=== PATIENT | female | born 1990 | race Caucasian/White ===

== ENCOUNTER 2016-03-04 05:35 | Inpatient (IN) | payer MEDICAID ==
[~2016-03-04] VITALS: Ht 152.4 cm; Wt 68.9 kg
[2016-03-04 06:14] LABS: BASOPHILS # (AUTO) 0.02 K/uL (0.00-0.20); BASOPHILS % (AUTO) 0.2 % (0.0-2.0); EOSINOPHILS # (AUTO) 0.06 K/uL (0.00-0.70); EOSINOPHILS % (AUTO) 0.71 % (1.0-6.0); HEMATOCRIT 32.3 % (36-46); HEMOGLOBIN 10.8 g/dL (12.0-16.0); LYMPHOCYTES # (AUTO) 1.3 K/uL (1.0-4.8); LYMPHOCYTES % (AUTO) 15.8 % (22.0-44.0); MEAN CORPUSCULAR HGB CONC 33.3 G/dL (31.0-37.0); MEAN CORPUSCULAR VOLUME 78 fL (80-100); MONOCYTES # (AUTO) 0.8 K/uL (0.1-1.0); MONOCYTES % (AUTO) 10.1 % (2.0-9.0); NEUTROPHILS # (AUTO) 6.1 K/uL (1.8-7.7); NEUTROPHILS % (AUTO) 73.1 % (40.0-70.0); PLATELET COUNT (AUTO) 332 K/uL (150-450); RED BLOOD CELL COUNT(AUTO) 4.14 MIL/uL (4.00-5.20); RED CELL DISTRIBUTION WIDTH 15.7 % (11.5-14.5); WHITE BLOOD COUNT (AUTO) 8.4 K/uL (4.5-11.0)
[2016-03-04 06:17] LABS: ANION GAP 4 mmol/L (8-16); CALCIUM, TOTAL 8.3 mg/dL (8.8-10.5); CARBON DIOXIDE 29 mmol/L (22-29); CHLORIDE 104 mmol/L (98-107); CREATININE 0.68 mg/dL (0.60-1.30); GLOMERULAR FILTR. RATE CALC > 60 mL/min (>60); POTASSIUM 3.2 mmol/L (3.5-5.1); SODIUM SERUM 137 mmol/L (136-145); UREA NITROGEN, BLOOD 9 mg/dL (7-18)
[2016-03-04 06:23] LABS: ALANINE AMINOTRANSFERASE 46 U/L (12-78); ALBUMIN 2.7 g/dL (3.4-5.0); ASPARTATE AMINOTRANSFERASE 33 U/L (15-37); BILIRUBIN,TOTAL 0.4 mg/dL (0.1-1.0); TOTAL PROTEIN, SERUM 8.5 g/dL (6.4-8.2)
[2016-03-04] MEDS ORDERED: HALOPERIDOL LACTATE 5 MG/ML VIAL IM ONE ×2 (11:30)
[2016-03-04] MEDS ORDERED: DiphenhydrAMINE HCL 50 MG/ML VIAL IM ONE ×2 (11:30)
[2016-03-04] MEDS ORDERED: LORazepam 2 MG/ML VIAL IM ONE ×2 (11:30)
[2016-03-04] MEDS ORDERED: CEPHALEXIN MONOHYDRATE 500 MG CAPSULE PO ONE (17:30)
[2016-03-05 00:12] VITALS: BP 110/64
[2016-03-05] MEDS ORDERED: INFLUENZA VIRUS VACCINE QVS 2016-17 (3YR+)/PF 60 MCG/0.5 ML SYRINGE IM ONE (00:30)
[2016-03-05] MEDS ORDERED: CloNIDine HCL 0.1 MG TABLET PO PRN (09:00)
[2016-03-05] MEDS ORDERED: POTASSIUM CHLORIDE 20 MEQ ER TABLET PO ONE (09:00)
[2016-03-05] MEDS ORDERED: BACITRACIN 28.4 GM OINTMENT TP PRN (09:00)
[2016-03-05] MEDS ORDERED: MAGNESIUM HYDROXIDE SUSPENSION 30 ML UDCUP PO PRN (09:00)
[2016-03-05] MEDS ORDERED: ACETAMINOPHEN 325 MG TABLET PO PRN (09:00)
[2016-03-05] MEDS ORDERED: LOPERAMIDE HCL 2 MG CAPSULE PO PRN (09:00)
[2016-03-05] MEDS ORDERED: PETROLATUM,WHITE 71 GM JELLY TP PRN (09:00)
[2016-03-05] MEDS ORDERED: IBUPROFEN 600 MG TABLET PO PRN (09:00)
[2016-03-05] MEDS ORDERED: ONDANSETRON HCL 4 MG TABLET PO PRN (09:00)
[2016-03-05] MEDS ORDERED: BENZOCAINE/MENTHOL LOZENGE [8 LOZENGES/PACKET] MM PRN (09:00)
[2016-03-05] MEDS ORDERED: ALBUTEROL SULFATE HFA 90 MCG/PUFF 8 GM INHALER IH PRN (09:00)
[2016-03-05] MEDS: QUEtiapine FUMARATE 200 MG TABLET PO SCH (21:33)
[2016-03-06] MEDS ORDERED: DiphenhydrAMINE HCL 50 MG/ML VIAL IM ONE (15:30)
[2016-03-06] MEDS ORDERED: HALOPERIDOL LACTATE 5 MG/ML VIAL IM ONE (15:30)
[2016-03-06] MEDS ORDERED: LORazepam 2 MG/ML VIAL IM ONE (15:30)
[2016-03-06 16:35] VITALS: BP 100/60
[2016-03-06] MEDS: QUEtiapine FUMARATE 200 MG TABLET PO SCH (21:56)
[2016-03-07] MEDS: LORazepam 2 MG TABLET PO PRN (12:10)
[2016-03-07] MEDS: HALOPERIDOL 5 MG TABLET PO PRN (12:10)
[2016-03-07 16:00] VITALS: BP 108/68
[2016-03-07] MEDS: QUEtiapine FUMARATE 200 MG TABLET PO SCH (22:06)
[2016-03-08 09:03] VITALS: BP 119/75
[2016-03-08 09:26] LABS: CHOL/HDL RATIO 2.3 (3.9-5.7); POTASSIUM 3.9 mmol/L (3.5-5.1); THYROID STIMULATING HORMONE 3.42 uIU/mL (0.36-3.74)
[2016-03-08 17:07] VITALS: BP 111/72
[2016-03-08] MEDS: QUEtiapine FUMARATE 200 MG TABLET PO SCH (21:00)
[2016-03-09 16:30] VITALS: BP 124/69
[2016-03-09] MEDS: QUEtiapine FUMARATE 200 MG TABLET PO SCH (21:00)
[2016-03-10] MEDS: QUEtiapine FUMARATE 200 MG TABLET PO SCH (20:14)
[2016-03-10] MEDS: LORazepam 2 MG TABLET PO PRN (20:15)
[2016-03-11] MEDS: QUEtiapine FUMARATE 200 MG TABLET PO SCH (20:35)
[2016-03-12] MEDS: HALOPERIDOL 5 MG TABLET PO PRN (09:15)
[2016-03-12] MEDS: LORazepam 2 MG TABLET PO PRN (09:15)
[2016-03-12] MEDS: CEPHALEXIN MONOHYDRATE 500 MG CAPSULE PO SCH ×2 (13:30→16:49)
[2016-03-12] MEDS: QUEtiapine FUMARATE 200 MG TABLET PO SCH (20:43)
[2016-03-13] MEDS: QUEtiapine FUMARATE 200 MG TABLET PO SCH ×2 (08:17→21:00)
[2016-03-13] MEDS: CEPHALEXIN MONOHYDRATE 500 MG CAPSULE PO SCH ×3 (08:17→17:00)
[2016-03-13] MEDS ORDERED: LORazepam 2 MG/ML VIAL ONE (15:27)
[2016-03-13] MEDS ORDERED: HALOPERIDOL LACTATE 5 MG/ML VIAL ONE (15:28)
[2016-03-13] MEDS ORDERED: DiphenhydrAMINE HCL 50 MG/ML VIAL ONE (15:28)
[2016-03-13] MEDS ORDERED: LORazepam 2 MG/ML VIAL IM ONE (15:30)
[2016-03-13] MEDS ORDERED: DiphenhydrAMINE HCL 50 MG/ML VIAL IM ONE (15:30)
[2016-03-13] MEDS ORDERED: HALOPERIDOL LACTATE 5 MG/ML VIAL IM ONE (15:30)
[2016-03-14] MEDS: CEPHALEXIN MONOHYDRATE 500 MG CAPSULE PO SCH ×3 (09:58→20:29)
[2016-03-14] MEDS: QUEtiapine FUMARATE 200 MG TABLET PO SCH ×2 (09:58→20:59)
[2016-03-14] MEDS: DIVALPROEX SODIUM 500 MG DR TABLET PO SCH ×2 (09:58→20:59)
[2016-03-14] MEDS ORDERED: HALOPERIDOL LACTATE 5 MG/ML VIAL IM ONE (15:15)
[2016-03-14] MEDS ORDERED: LORazepam 2 MG/ML VIAL IM ONE (15:15)
[2016-03-14] MEDS ORDERED: DiphenhydrAMINE HCL 50 MG/ML VIAL IM ONE (15:15)
[2016-03-14 16:00] VITALS: BP 106/63
[2016-03-15] MEDS: DIVALPROEX SODIUM 500 MG DR TABLET PO SCH ×2 (08:23→21:27)
[2016-03-15] MEDS: QUEtiapine FUMARATE 200 MG TABLET PO SCH ×2 (08:23→21:27)
[2016-03-15] MEDS: CEPHALEXIN MONOHYDRATE 500 MG CAPSULE PO SCH ×3 (08:23→18:06)
[2016-03-15] MEDS: LORazepam 2 MG TABLET PO PRN ×2 (08:57→13:03)
[2016-03-15] MEDS: HALOPERIDOL 5 MG TABLET PO PRN (13:03)
[2016-03-15 13:42] VITALS: BP 117/64
[2016-03-15 16:18] VITALS: BP 118/66
[2016-03-16 08:07] VITALS: BP 102/60
[2016-03-16] MEDS: CEPHALEXIN MONOHYDRATE 500 MG CAPSULE PO SCH ×3 (08:45→16:57)
[2016-03-16] MEDS: DIVALPROEX SODIUM 500 MG DR TABLET PO SCH ×2 (08:45→22:31)
[2016-03-16] MEDS: LORazepam 2 MG TABLET PO PRN (08:46)
[2016-03-16] MEDS: QUEtiapine FUMARATE 200 MG TABLET PO SCH ×2 (08:46→22:31)
[2016-03-16 16:00] VITALS: BP 108/69
[2016-03-16 18:22] LABS: APPEARANCE,URINE CLEAR (CLEAR); GLUCOSE, URINE (UA) NEGATIVE (NEGATIVE); KETONES,URINE NEGATIVE (NEGATIVE); LEUKOCYTE ESTERASE ,URINE SMALL (NEGATIVE); OCCULT BLOOD,URINE NEGATIVE (NEGATIVE); PROTEIN,URINE NEGATIVE (NEGATIVE)
[2016-03-16 18:25] LABS: ADD UA MICROSCOPIC YES
[2016-03-16 18:34] LABS: RBC,URINE None Seen /HPF (0-2)
[2016-03-17 08:01] VITALS: BP 113/64
[2016-03-17] MEDS: CHOLECALCIFEROL (VIT D3) 1,000 UNITS TABLET PO SCH (11:15)
[2016-03-17] MEDS: QUEtiapine FUMARATE 200 MG TABLET PO SCH ×2 (11:15→20:38)
[2016-03-17] MEDS: CEPHALEXIN MONOHYDRATE 500 MG CAPSULE PO SCH ×3 (11:15→16:36)
[2016-03-17] MEDS: DIVALPROEX SODIUM 500 MG DR TABLET PO SCH ×2 (11:16→20:38)
[2016-03-17] MEDS: LORazepam 2 MG TABLET PO PRN (15:20)
[2016-03-17 16:10] VITALS: BP 146/89
[2016-03-18 08:52] VITALS: BP 104/64
[2016-03-18] MEDS: CHOLECALCIFEROL (VIT D3) 1,000 UNITS TABLET PO SCH (09:22)
[2016-03-18] MEDS: QUEtiapine FUMARATE 200 MG TABLET PO SCH ×2 (09:22→21:08)
[2016-03-18] MEDS: CEPHALEXIN MONOHYDRATE 500 MG CAPSULE PO SCH ×3 (09:22→16:19)
[2016-03-18] MEDS: DIVALPROEX SODIUM 500 MG DR TABLET PO SCH ×2 (09:23→21:08)
[2016-03-18] MEDS: LORazepam 2 MG TABLET PO PRN (16:20)
[2016-03-19] MEDS: DIVALPROEX SODIUM 500 MG DR TABLET PO SCH ×2 (09:43→20:39)
[2016-03-19] MEDS: CEPHALEXIN MONOHYDRATE 500 MG CAPSULE PO SCH ×3 (09:43→17:33)
[2016-03-19] MEDS: QUEtiapine FUMARATE 200 MG TABLET PO SCH ×2 (09:43→20:40)
[2016-03-19] MEDS: CHOLECALCIFEROL (VIT D3) 1,000 UNITS TABLET PO SCH (09:43)
[2016-03-19] MEDS: LORazepam 2 MG TABLET PO PRN (22:11)
[2016-03-20] MEDS: HALOPERIDOL 5 MG TABLET PO PRN (00:08)
[2016-03-20] MEDS: ZOLPIDEM TARTRATE 10 MG TABLET PO PRN (00:08)
[2016-03-20] MEDS: CHOLECALCIFEROL (VIT D3) 1,000 UNITS TABLET PO SCH (08:55)
[2016-03-20] MEDS: DIVALPROEX SODIUM 500 MG DR TABLET PO SCH ×2 (08:55→20:14)
[2016-03-20] MEDS: CEPHALEXIN MONOHYDRATE 500 MG CAPSULE PO SCH ×3 (08:55→17:40)
[2016-03-20] MEDS: QUEtiapine FUMARATE 200 MG TABLET PO SCH ×2 (08:55→20:14)
[2016-03-21 08:00] VITALS: BP 105/62
[2016-03-21] MEDS: CHOLECALCIFEROL (VIT D3) 1,000 UNITS TABLET PO SCH (09:38)
[2016-03-21] MEDS: DIVALPROEX SODIUM 500 MG DR TABLET PO SCH ×2 (09:38→20:02)
[2016-03-21] MEDS: QUEtiapine FUMARATE 200 MG TABLET PO SCH ×2 (09:38→20:02)
[2016-03-21] MEDS: CEPHALEXIN MONOHYDRATE 500 MG CAPSULE PO SCH ×3 (09:38→17:13)
[2016-03-22] MEDS: CEPHALEXIN MONOHYDRATE 500 MG CAPSULE PO SCH (08:38)
[2016-03-22] MEDS: CHOLECALCIFEROL (VIT D3) 1,000 UNITS TABLET PO SCH (08:39)
[2016-03-22] MEDS: QUEtiapine FUMARATE 200 MG TABLET PO SCH (08:39)
[2016-03-22] MEDS: DIVALPROEX SODIUM 500 MG DR TABLET PO SCH ×2 (08:39→20:20)
[2016-03-22] MEDS: LORazepam 2 MG TABLET PO PRN (16:03)
[2016-03-22 16:04] VITALS: BP 115/72
[2016-03-22 16:26] VITALS: BP 116/78
[2016-03-22] MEDS: QUEtiapine FUMARATE 300 MG TABLET PO SCH (20:20)
[2016-03-23 08:01] VITALS: BP 102/73
[2016-03-23] MEDS: CHOLECALCIFEROL (VIT D3) 1,000 UNITS TABLET PO SCH (08:19)
[2016-03-23] MEDS: DIVALPROEX SODIUM 500 MG DR TABLET PO SCH ×2 (08:19→21:15)
[2016-03-23] MEDS: QUEtiapine FUMARATE 300 MG TABLET PO SCH ×2 (08:19→21:15)
[2016-03-23 16:01] VITALS: BP 114/77
[2016-03-24] MEDS: CHOLECALCIFEROL (VIT D3) 1,000 UNITS TABLET PO SCH (07:49)
[2016-03-24] MEDS: QUEtiapine FUMARATE 300 MG TABLET PO SCH ×2 (07:49→20:42)
[2016-03-24] MEDS: DIVALPROEX SODIUM 500 MG DR TABLET PO SCH ×2 (07:49→20:42)
[2016-03-24 07:57] LABS: ANION GAP 6 mmol/L (8-16); CALCIUM, TOTAL 8.3 mg/dL (8.8-10.5); CARBON DIOXIDE 27 mmol/L (22-29); CHLORIDE 105 mmol/L (98-107); CREATININE 0.62 mg/dL (0.60-1.30); GLOMERULAR FILTR. RATE CALC > 60 mL/min (>60); POTASSIUM 4.4 mmol/L (3.5-5.1); SODIUM SERUM 138 mmol/L (136-145); UREA NITROGEN, BLOOD 17 mg/dL (7-18)
[2016-03-24 08:01] VITALS: BP 100/72
[2016-03-24 08:02] LABS: BASOPHILS % (AUTO) 0.5 % (0.0-2.0); EOSINOPHILS % (AUTO) 13.9 % (1.0-6.0); HEMOGLOBIN 11.3 g/dL (12.0-16.0); LYMPHOCYTES # (AUTO) 2.4 K/uL (1.0-4.8); LYMPHOCYTES % (AUTO) 33.4 % (22.0-44.0); MEAN CORPUSCULAR HEMOGLOBIN 25.9 pg (26.0-34.0); MEAN CORPUSCULAR HGB CONC 33.1 G/dL (31.0-37.0); MEAN CORPUSCULAR VOLUME 78 fL (80-100); MONOCYTES % (AUTO) 13.5 % (2.0-9.0); NEUTROPHILS # (AUTO) 2.8 K/uL (1.8-7.7); NEUTROPHILS % (AUTO) 38.7 % (40.0-70.0); PLATELET COUNT (AUTO) 294 K/uL (150-450); RED BLOOD CELL COUNT(AUTO) 4.35 MIL/uL (4.00-5.20); RED CELL DISTRIBUTION WIDTH 15.9 % (11.5-14.5); WHITE BLOOD COUNT (AUTO) 7.3 K/uL (4.5-11.0)
[2016-03-24 16:06] VITALS: BP 95/73
[2016-03-25] MEDS: DIVALPROEX SODIUM 500 MG DR TABLET PO SCH ×2 (09:22→20:46)
[2016-03-25] MEDS: QUEtiapine FUMARATE 300 MG TABLET PO SCH ×2 (09:22→20:47)
[2016-03-25] MEDS: CHOLECALCIFEROL (VIT D3) 1,000 UNITS TABLET PO SCH (09:22)
[2016-03-26] MEDS: CHOLECALCIFEROL (VIT D3) 1,000 UNITS TABLET PO SCH (08:22)
[2016-03-26] MEDS: DIVALPROEX SODIUM 500 MG DR TABLET PO SCH ×2 (08:22→20:28)
[2016-03-26] MEDS: QUEtiapine FUMARATE 300 MG TABLET PO SCH ×2 (08:22→20:28)
[2016-03-26 08:41] VITALS: BP 103/58
[2016-03-26 16:05] VITALS: BP 108/74
[2016-03-27 06:55] VITALS: BP 108/73
[2016-03-27] MEDS: DIVALPROEX SODIUM 500 MG DR TABLET PO SCH ×2 (08:34→20:07)
[2016-03-27] MEDS: QUEtiapine FUMARATE 300 MG TABLET PO SCH ×2 (08:34→20:07)
[2016-03-27] MEDS: CHOLECALCIFEROL (VIT D3) 1,000 UNITS TABLET PO SCH (08:34)
[2016-03-27 08:45] VITALS: BP 109/66
[2016-03-27 15:42] LABS: GC DNA N.A. AMPLIFY Negative (Negative)
[2016-03-27 16:34] VITALS: BP 101/69
[2016-03-28] MEDS ORDERED: AZITHROMYCIN 250 MG TABLET PO ONE (06:45)
[2016-03-28 08:00] VITALS: BP 104/66
[2016-03-28] MEDS: DIVALPROEX SODIUM 500 MG DR TABLET PO SCH ×2 (09:11→20:18)
[2016-03-28] MEDS: CHOLECALCIFEROL (VIT D3) 1,000 UNITS TABLET PO SCH (09:11)
[2016-03-28] MEDS: QUEtiapine FUMARATE 300 MG TABLET PO SCH ×2 (09:11→20:18)
[2016-03-28 17:42] VITALS: BP 99/55
[2016-03-29 00:05] VITALS: BP 107/78
[2016-03-29] MEDS: ZOLPIDEM TARTRATE 10 MG TABLET PO PRN (01:13)
[2016-03-29 08:00] VITALS: BP 100/56
[2016-03-29] MEDS: CHOLECALCIFEROL (VIT D3) 1,000 UNITS TABLET PO SCH (09:15)
[2016-03-29] MEDS: QUEtiapine FUMARATE 300 MG TABLET PO SCH ×2 (09:15→20:22)
[2016-03-29] MEDS: DIVALPROEX SODIUM 500 MG DR TABLET PO SCH ×2 (09:15→20:22)
[2016-03-29 18:46] VITALS: BP 111/80
[2016-03-30 06:58] VITALS: BP 118/76
[2016-03-30 08:00] VITALS: BP 126/87
[2016-03-30] MEDS: QUEtiapine FUMARATE 300 MG TABLET PO SCH ×2 (08:50→20:11)
[2016-03-30] MEDS: DIVALPROEX SODIUM 500 MG DR TABLET PO SCH ×2 (08:50→20:11)
[2016-03-30] MEDS: CHOLECALCIFEROL (VIT D3) 1,000 UNITS TABLET PO SCH (08:50)
[2016-03-30 16:12] VITALS: BP 122/76
[2016-03-31 06:45] VITALS: BP 102/65
[2016-03-31 08:00] VITALS: BP 105/55
[2016-03-31] MEDS: CHOLECALCIFEROL (VIT D3) 1,000 UNITS TABLET PO SCH (09:56)
[2016-03-31] MEDS: QUEtiapine FUMARATE 300 MG TABLET PO SCH ×2 (09:56→20:32)
[2016-03-31] MEDS: DIVALPROEX SODIUM 500 MG DR TABLET PO SCH ×2 (09:56→20:32)
[2016-03-31 16:00] VITALS: BP 101/62
[2016-04-01 01:00] VITALS: BP 112/76
[2016-04-01] MEDS: MAG HYDROX/AL HYDROX/SIMETH ES 30 ML SUSPENSION UDCUP PO PRN (01:11)
[2016-04-01 09:46] VITALS: BP 105/69
[2016-04-01] MEDS: CHOLECALCIFEROL (VIT D3) 1,000 UNITS TABLET PO SCH (10:15)
[2016-04-01] MEDS: QUEtiapine FUMARATE 300 MG TABLET PO SCH ×2 (10:15→20:48)
[2016-04-01] MEDS: DIVALPROEX SODIUM 500 MG DR TABLET PO SCH ×2 (10:15→20:48)
[2016-04-01 16:00] VITALS: BP 119/75
[2016-04-02 08:15] VITALS: BP 102/68
[2016-04-02] MEDS: QUEtiapine FUMARATE 300 MG TABLET PO SCH ×2 (11:09→20:46)
[2016-04-02] MEDS: DIVALPROEX SODIUM 500 MG DR TABLET PO SCH ×2 (11:09→20:46)
[2016-04-02] MEDS: CHOLECALCIFEROL (VIT D3) 1,000 UNITS TABLET PO SCH (11:09)
[2016-04-02 16:51] VITALS: BP 105/75
[2016-04-03] MEDS: QUEtiapine FUMARATE 300 MG TABLET PO SCH ×2 (09:07→20:13)
[2016-04-03] MEDS: DIVALPROEX SODIUM 500 MG DR TABLET PO SCH ×2 (09:07→20:13)
[2016-04-03] MEDS: CHOLECALCIFEROL (VIT D3) 1,000 UNITS TABLET PO SCH (09:07)
[2016-04-03 10:18] VITALS: BP 140/88
[2016-04-03 10:18] LABS: HIV CONFIRM? YES (NP)
[2016-04-03 16:59] VITALS: BP 121/78
[2016-04-04 08:08] VITALS: BP 118/76
[2016-04-04] MEDS: QUEtiapine FUMARATE 300 MG TABLET PO SCH ×2 (08:31→20:56)
[2016-04-04] MEDS: CHOLECALCIFEROL (VIT D3) 1,000 UNITS TABLET PO SCH (08:31)
[2016-04-04] MEDS: DIVALPROEX SODIUM 500 MG DR TABLET PO SCH ×2 (08:31→20:56)
[2016-04-04 18:01] VITALS: BP 118/79
[2016-04-05 07:07] LABS: LYMPHS % FOR CD4 COUNT 30 %; LYMPHS ABS FOR CD4 COUNT 1.8 x10E3/uL (0.7-3.1)
[2016-04-05] MEDS: CHOLECALCIFEROL (VIT D3) 1,000 UNITS TABLET PO SCH (08:48)
[2016-04-05] MEDS: QUEtiapine FUMARATE 300 MG TABLET PO SCH ×2 (08:48→20:27)
[2016-04-05] MEDS: DIVALPROEX SODIUM 500 MG DR TABLET PO SCH ×2 (08:48→20:27)
[2016-04-05 09:27] LABS: HEPATITIS Bs ANTIGEN SCREEN P Negative (Negative); HEPATITIS C AB SCREEN 0.1 s/co ratio (0.0-0.9)
[2016-04-05 09:47] VITALS: BP 137/78
[2016-04-05 15:19] LABS: ABSOLUTE CD4 COUNT 257 /uL (359-1519); PERCENT CD4 CELLS 14.3 % (30.8-58.5)
[2016-04-05 18:57] VITALS: BP 96/57
[2016-04-06 08:00] VITALS: BP 95/82
[2016-04-06] MEDS: DIVALPROEX SODIUM 500 MG DR TABLET PO SCH ×2 (10:18→20:07)
[2016-04-06] MEDS: CHOLECALCIFEROL (VIT D3) 1,000 UNITS TABLET PO SCH (10:18)
[2016-04-06] MEDS: QUEtiapine FUMARATE 300 MG TABLET PO SCH ×2 (10:18→20:08)
[2016-04-06 16:00] VITALS: BP 113/73
[2016-04-06] MEDS: NYSTATIN 30 GM CREAM TP SCH (22:15)
[2016-04-07] MEDS: DIVALPROEX SODIUM 500 MG DR TABLET PO SCH ×2 (08:32→20:30)
[2016-04-07] MEDS: NYSTATIN 30 GM CREAM TP SCH ×2 (08:32→17:09)
[2016-04-07] MEDS: QUEtiapine FUMARATE 300 MG TABLET PO SCH ×2 (08:32→20:30)
[2016-04-07] MEDS: CHOLECALCIFEROL (VIT D3) 1,000 UNITS TABLET PO SCH (08:32)
[2016-04-07 09:48] VITALS: BP 121/79
[2016-04-07 16:54] VITALS: BP 125/75
[2016-04-08 08:00] VITALS: BP 101/60
[2016-04-08] MEDS: CHOLECALCIFEROL (VIT D3) 1,000 UNITS TABLET PO SCH (10:09)
[2016-04-08] MEDS: QUEtiapine FUMARATE 300 MG TABLET PO SCH ×2 (10:09→20:50)
[2016-04-08] MEDS: DIVALPROEX SODIUM 500 MG DR TABLET PO SCH ×2 (10:10→20:50)
[2016-04-08] MEDS: NYSTATIN 30 GM CREAM TP SCH ×2 (10:10→17:33)
[2016-04-08 17:06] VITALS: BP 117/77
[2016-04-08] MEDS: LORazepam 2 MG TABLET PO PRN (19:00)
[2016-04-08] MEDS: HALOPERIDOL 5 MG TABLET PO PRN (19:01)
[2016-04-09 08:32] VITALS: BP 115/73
[2016-04-09] MEDS: DIVALPROEX SODIUM 500 MG DR TABLET PO SCH ×2 (09:50→21:28)
[2016-04-09] MEDS: CHOLECALCIFEROL (VIT D3) 1,000 UNITS TABLET PO SCH (09:50)
[2016-04-09] MEDS: QUEtiapine FUMARATE 300 MG TABLET PO SCH ×2 (09:50→21:27)
[2016-04-09] MEDS: NYSTATIN 30 GM CREAM TP SCH ×2 (09:51→16:11)
[2016-04-09 10:24] LABS: HIV-1 RNA PCR 1042160 copies/mL; HIV-1 RNA PCR LOG10 6.018
[2016-04-09] MEDS: LORazepam 2 MG TABLET PO PRN (16:11)
[2016-04-09 20:20] VITALS: BP 115/72
[2016-04-10 08:05] VITALS: BP 99/66
[2016-04-10] MEDS: NYSTATIN 30 GM CREAM TP SCH ×2 (09:00→16:18)
[2016-04-10] MEDS: CHOLECALCIFEROL (VIT D3) 1,000 UNITS TABLET PO SCH (10:14)
[2016-04-10] MEDS: DIVALPROEX SODIUM 500 MG DR TABLET PO SCH ×2 (10:14→20:06)
[2016-04-10] MEDS: QUEtiapine FUMARATE 300 MG TABLET PO SCH ×2 (10:14→20:06)
[2016-04-10 16:58] VITALS: BP 123/76
[2016-04-11 08:05] VITALS: BP 108/76
[2016-04-11] MEDS: QUEtiapine FUMARATE 300 MG TABLET PO SCH ×2 (08:50→20:08)
[2016-04-11] MEDS: CHOLECALCIFEROL (VIT D3) 1,000 UNITS TABLET PO SCH (08:50)
[2016-04-11] MEDS: DIVALPROEX SODIUM 500 MG DR TABLET PO SCH ×2 (08:50→20:08)
[2016-04-11] MEDS: NYSTATIN 30 GM CREAM TP SCH ×2 (08:51→17:35)
[2016-04-11 16:56] VITALS: BP 108/56
[2016-04-11] MEDS: MAG HYDROX/AL HYDROX/SIMETH ES 30 ML SUSPENSION UDCUP PO PRN (23:56)
[2016-04-12 08:05] VITALS: BP 118/76
[2016-04-12] MEDS: NYSTATIN 30 GM CREAM TP SCH ×2 (09:00→16:47)
[2016-04-12] MEDS: DIVALPROEX SODIUM 500 MG DR TABLET PO SCH ×2 (09:57→21:44)
[2016-04-12] MEDS: CHOLECALCIFEROL (VIT D3) 1,000 UNITS TABLET PO SCH (09:57)
[2016-04-12] MEDS: QUEtiapine FUMARATE 300 MG TABLET PO SCH ×2 (09:57→21:44)
[2016-04-12 20:25] VITALS: BP 101/65
[2016-04-13] MEDS: CHOLECALCIFEROL (VIT D3) 1,000 UNITS TABLET PO SCH (09:56)
[2016-04-13] MEDS: NYSTATIN 30 GM CREAM TP SCH ×2 (09:56→16:42)
[2016-04-13] MEDS: DIVALPROEX SODIUM 500 MG DR TABLET PO SCH ×2 (09:56→20:36)
[2016-04-13] MEDS: QUEtiapine FUMARATE 300 MG TABLET PO SCH ×2 (09:56→20:36)
[2016-04-13 10:04] VITALS: BP 112/77
[2016-04-13 16:32] VITALS: BP 113/70
[2016-04-14 08:21] VITALS: BP 98/61
[2016-04-14] MEDS: NYSTATIN 30 GM CREAM TP SCH ×2 (09:00→16:48)
[2016-04-14] MEDS: CHOLECALCIFEROL (VIT D3) 1,000 UNITS TABLET PO SCH (09:51)
[2016-04-14] MEDS: DIVALPROEX SODIUM 500 MG DR TABLET PO SCH ×2 (09:51→20:43)
[2016-04-14] MEDS: QUEtiapine FUMARATE 300 MG TABLET PO SCH ×2 (09:52→20:43)
[2016-04-14 16:50] VITALS: BP 101/65
[2016-04-15 08:55] VITALS: BP 132/86
[2016-04-15] MEDS: NYSTATIN 30 GM CREAM TP SCH ×2 (09:00→16:42)
[2016-04-15] MEDS: QUEtiapine FUMARATE 300 MG TABLET PO SCH ×2 (09:21→20:05)
[2016-04-15] MEDS: DIVALPROEX SODIUM 500 MG DR TABLET PO SCH ×2 (09:21→20:05)
[2016-04-15] MEDS: CHOLECALCIFEROL (VIT D3) 1,000 UNITS TABLET PO SCH (09:21)
[2016-04-15 17:53] VITALS: BP 125/78
[2016-04-16 08:44] VITALS: BP 117/72
[2016-04-16] MEDS: NYSTATIN 30 GM CREAM TP SCH (09:51)
[2016-04-16] MEDS: CHOLECALCIFEROL (VIT D3) 1,000 UNITS TABLET PO SCH (09:51)
[2016-04-16] MEDS: QUEtiapine FUMARATE 300 MG TABLET PO SCH (09:51)
[2016-04-16] MEDS ORDERED: QUET300T2 PO (14:55)
[2016-04-16] MEDS ORDERED: VITAD1000 PO (14:57)
[2016-04-16] MEDS ORDERED: NYST15CR2 TP (14:58)
== END 2016-04-16 16:00 | disposition home or self-care (01) | DRG 750 ==
LOC: EMS 05:38 → 3EC 23:00 → 3EI 03-26 09:51
PROVIDERS: ADMIT Psychiatry & Neurology Child & Adolescent Psychiatry; ATTEND Psychiatry & Neurology Child & Adolescent Psychiatry
DX: F25.1 Schizoaffective disorder, depressive type (principal); E55.9 Vitamin D deficiency, unspecified; A74.89 Other chlamydial diseases; R45.850 Homicidal ideations; F17.210 Nicotine dependence, cigarettes, uncomplicated; D50.9 Iron deficiency anemia, unspecified; F15.129 Other stimulant abuse with intoxication, unspecified; L30.9 Dermatitis, unspecified; Z20.6 Contact with and (suspected) exposure to human immunodeficiency virus [HIV]; E87.6 Hypokalemia; F41.9 Anxiety disorder, unspecified; G47.00 Insomnia, unspecified; Z71.6 Tobacco abuse counseling; Z98.890 Other specified postprocedural states; Z59.0 Homelessness; Z28.21 Immunization not carried out because of patient refusal
CPT/HCPCS: 82306; 83540; 83550; 84132; 84443; 86361; 86592; 86701; 86702; 86706; 86707; 86803; 87340; 87350; 87389; 87390; 87491; 87536; 87591; 96372; 99285; G0480; J1200; J1630; J2060; J3535

== ENCOUNTER 2016-07-09 11:25 | Emergency (ER) | payer MEDICAID, OTHER ==
[~2016-07-09] VITALS: Ht 154.9 cm; Wt 54.5 kg
[~2016-07-09 11:25] MED LIST: NYST15CR2 TP; QUET300T2 PO; VITAD1000 PO
[2016-07-09 12:04] LABS: BASOPHILS # (AUTO) 0.02 K/uL (0.00-0.20); BASOPHILS % (AUTO) 0.3 % (0.0-2.0); EOSINOPHILS # (AUTO) 0.38 K/uL (0.00-0.70); HEMATOCRIT 34.3 % (36-46); HEMOGLOBIN 11.1 g/dL (12.0-16.0); LYMPHOCYTES # (AUTO) 0.8 K/uL (1.0-4.8); LYMPHOCYTES % (AUTO) 12.3 % (22.0-44.0); MEAN CORPUSCULAR HEMOGLOBIN 25.4 pg (26.0-34.0); MEAN CORPUSCULAR HGB CONC 32.3 G/dL (31.0-37.0); MEAN CORPUSCULAR VOLUME 79 fL (80-100); MONOCYTES # (AUTO) 0.5 K/uL (0.1-1.0); MONOCYTES % (AUTO) 7.8 % (2.0-9.0); NEUTROPHILS # (AUTO) 4.7 K/uL (1.8-7.7); NEUTROPHILS % (AUTO) 73.7 % (40.0-70.0); PLATELET COUNT (AUTO) 330 K/uL (150-450); RED BLOOD CELL COUNT(AUTO) 4.35 MIL/uL (4.00-5.20); RED CELL DISTRIBUTION WIDTH 17.7 % (11.5-14.5); WHITE BLOOD COUNT (AUTO) 6.4 K/uL (4.5-11.0)
[2016-07-09 12:12] LABS: ANION GAP 8 mmol/L (8-16); CALCIUM, TOTAL 8.6 mg/dL (8.8-10.5); CARBON DIOXIDE 28 mmol/L (22-29); CHLORIDE 102 mmol/L (98-107); CREATININE 0.71 mg/dL (0.60-1.30); GLOMERULAR FILTR. RATE CALC > 60 mL/min (>60); POTASSIUM 3.7 mmol/L (3.5-5.1); SODIUM SERUM 138 mmol/L (136-145); UREA NITROGEN, BLOOD 8 mg/dL (7-18)
[2016-07-09] MEDS ORDERED: LORazepam 1 MG TABLET PO ONE (12:15)
[2016-07-09 12:16] LABS: ALANINE AMINOTRANSFERASE 34 U/L (12-78); ALBUMIN 2.3 g/dL (3.4-5.0); ASPARTATE AMINOTRANSFERASE 32 U/L (15-37); BILIRUBIN,TOTAL 0.3 mg/dL (0.1-1.0); TOTAL PROTEIN, SERUM 8.9 g/dL (6.4-8.2)
[2016-07-09 12:29] LABS: RBC MORPHOLOGY COMMENT ABNORMAL RBC MORPH
[2016-07-09 13:23] VITALS: BP 121/78
== END 2016-07-09 13:24 | disposition home or self-care (01) ==
LOC: EMS 11:26 → EEVIPCON 11:26 → EMS 13:24
DX: F41.9 Anxiety disorder, unspecified (principal); F17.210 Nicotine dependence, cigarettes, uncomplicated; F31.9 Bipolar disorder, unspecified; Z91.19 Patient's noncompliance with other medical treatment and regimen
CPT/HCPCS: 36415; 80053; 85025; 99284; G0480

== ENCOUNTER 2016-08-17 18:56 | Inpatient (IN) | payer MEDICAID, OTHER ==
[~2016-08-17] VITALS: Ht 152.4 cm; Wt 50.6 kg
[2016-08-17 19:21] LABS: BASOPHILS % (AUTO) 0.3 % (0.0-2.0); EOSINOPHILS % (AUTO) 1.2 % (1.0-6.0); HEMATOCRIT 26.9 % (36-46); HEMOGLOBIN 8.6 g/dL (12.0-16.0); LYMPHOCYTES # (AUTO) 0.9 K/uL (1.0-4.8); LYMPHOCYTES % (AUTO) 15.8 % (22.0-44.0); MEAN CORPUSCULAR HEMOGLOBIN 24.2 pg (26.0-34.0); MEAN CORPUSCULAR HGB CONC 31.8 G/dL (31.0-37.0); MEAN CORPUSCULAR VOLUME 76 fL (80-100); MONOCYTES # (AUTO) 0.7 K/uL (0.1-1.0); MONOCYTES % (AUTO) 12.5 % (2.0-9.0); NEUTROPHILS # (AUTO) 4.2 K/uL (1.8-7.7); NEUTROPHILS % (AUTO) 70.2 % (40.0-70.0); PLATELET COUNT (AUTO) 435 K/uL (150-450); RED BLOOD CELL COUNT(AUTO) 3.53 MIL/uL (4.00-5.20); RED CELL DISTRIBUTION WIDTH 17.1 % (11.5-14.5)
[2016-08-17 19:29] LABS: ANION GAP 7 mmol/L (8-16); CALCIUM, TOTAL 8.8 mg/dL (8.8-10.5); CARBON DIOXIDE 26 mmol/L (22-29); CHLORIDE 98 mmol/L (98-107); GLOMERULAR FILTR. RATE CALC > 60 mL/min (>60); POTASSIUM 3.3 mmol/L (3.5-5.1); SODIUM SERUM 131 mmol/L (136-145); UREA NITROGEN, BLOOD 14 mg/dL (7-18)
[2016-08-17 19:35] LABS: ALANINE AMINOTRANSFERASE 31 U/L (12-78); ALBUMIN 2.7 g/dL (3.4-5.0); ASPARTATE AMINOTRANSFERASE 30 U/L (15-37); BILIRUBIN,TOTAL 0.6 mg/dL (0.1-1.0); TOTAL PROTEIN, SERUM 9.2 g/dL (6.4-8.2)
[2016-08-17 20:02] LABS: RBC MORPHOLOGY COMMENT ABNORMAL RBC MORPH
[2016-08-17] MEDS ORDERED: ZOLPIDEM TARTRATE 10 MG TABLET PO PRN (20:45)
[2016-08-17] MEDS ORDERED: POTASSIUM CHLORIDE 20 MEQ ER TABLET PO ONE (21:30)
[2016-08-17] MEDS ORDERED: LORazepam 2 MG/ML VIAL IM ONE (21:30)
[2016-08-17] MEDS ORDERED: HALOPERIDOL LACTATE 5 MG/ML VIAL IM ONE (21:30)
[2016-08-17] MEDS ORDERED: DiphenhydrAMINE HCL 50 MG/ML VIAL IM ONE (21:30)
[2016-08-18 01:19] VITALS: BP 100/60
[2016-08-18] MEDS ORDERED: PNEUMOCOCCAL VACCINE POLYVALENT 0.5 ML VIAL [PPSV23] IM ONE (02:00)
[2016-08-18 09:22] VITALS: BP 90/62
[2016-08-18] MEDS: FERROUS SULFATE 325 MG EC TABLET PO SCH ×2 (12:46→16:36)
[2016-08-18 16:30] VITALS: BP 103/66
[2016-08-18 17:00] VITALS: BP 108/59
[2016-08-18] MEDS ORDERED: ACETAMINOPHEN 325 MG TABLET PO PRN (17:15)
[2016-08-18 21:15] VITALS: BP 100/62
[2016-08-18] MEDS: QUEtiapine FUMARATE 300 MG TABLET PO SCH (21:17)
[2016-08-19] VITALS (7 sets, daily range): BP systolic 89–106; BP diastolic 50–76
[2016-08-19] MEDS: FERROUS SULFATE 325 MG EC TABLET PO SCH ×3 (06:37→16:37)
[2016-08-19] MEDS ORDERED: DiphenhydrAMINE HCL 50 MG/ML VIAL ONE (08:57)
[2016-08-19] MEDS ORDERED: HALOPERIDOL LACTATE 5 MG/ML VIAL ONE (08:57)
[2016-08-19] MEDS ORDERED: LORazepam 2 MG/ML VIAL ONE (08:57)
[2016-08-19] MEDS ORDERED: HALOPERIDOL LACTATE 5 MG/ML VIAL IM ONE (09:00)
[2016-08-19] MEDS: CEPHALEXIN MONOHYDRATE 500 MG CAPSULE PO SCH ×2 (09:00→16:38)
[2016-08-19] MEDS: QUEtiapine FUMARATE 300 MG TABLET PO SCH ×2 (09:00→20:50)
[2016-08-19] MEDS ORDERED: LORazepam 2 MG/ML VIAL IM ONE (09:00)
[2016-08-19] MEDS ORDERED: DiphenhydrAMINE HCL 50 MG/ML VIAL IM ONE (09:00)
[2016-08-19] MEDS: ACETAMINOPHEN 325 MG TABLET PO PRN ×2 (13:35→20:50)
[2016-08-20] VITALS (8 sets, daily range): BP systolic 83–103; BP diastolic 45–72
[2016-08-20] MEDS: ACETAMINOPHEN 325 MG TABLET PO PRN (05:58)
[2016-08-20] MEDS: FERROUS SULFATE 325 MG EC TABLET PO SCH ×3 (06:26→17:38)
[2016-08-20] MEDS ORDERED: POTASSIUM CHLORIDE 20 MEQ ER TABLET PO ONE (07:15)
[2016-08-20] MEDS: AZITHROMYCIN 250 MG TABLET PO SCH (08:29)
[2016-08-20] MEDS: CEPHALEXIN MONOHYDRATE 500 MG CAPSULE PO SCH ×2 (08:30→17:38)
[2016-08-20] MEDS: QUEtiapine FUMARATE 300 MG TABLET PO SCH ×2 (08:30→20:38)
[2016-08-21 02:00] VITALS: BP 100/63
[2016-08-21 06:00] VITALS: BP 103/58
[2016-08-21] MEDS: FERROUS SULFATE 325 MG EC TABLET PO SCH ×3 (06:24→16:17)
[2016-08-21 08:26] LABS: BASOPHILS % (AUTO) 0.4 % (0.0-2.0); EOSINOPHILS % (AUTO) 9.3 % (1.0-6.0); HEMATOCRIT 26.5 % (36-46); HEMOGLOBIN 8.4 g/dL (12.0-16.0); LYMPHOCYTES # (AUTO) 0.8 K/uL (1.0-4.8); LYMPHOCYTES % (AUTO) 12.9 % (22.0-44.0); MEAN CORPUSCULAR HEMOGLOBIN 24.3 pg (26.0-34.0); MEAN CORPUSCULAR HGB CONC 31.5 G/dL (31.0-37.0); MEAN CORPUSCULAR VOLUME 77 fL (80-100); MONOCYTES # (AUTO) 0.4 K/uL (0.1-1.0); MONOCYTES % (AUTO) 7.5 % (2.0-9.0); NEUTROPHILS # (AUTO) 4.2 K/uL (1.8-7.7); NEUTROPHILS % (AUTO) 69.9 % (40.0-70.0); PLATELET COUNT (AUTO) 359 K/uL (150-450); RED BLOOD CELL COUNT(AUTO) 3.44 MIL/uL (4.00-5.20); RED CELL DISTRIBUTION WIDTH 17.2 % (11.5-14.5)
[2016-08-21 08:52] VITALS: BP 121/62
[2016-08-21] MEDS: AZITHROMYCIN 250 MG TABLET PO SCH (08:52)
[2016-08-21] MEDS: CEPHALEXIN MONOHYDRATE 500 MG CAPSULE PO SCH ×2 (08:52→16:17)
[2016-08-21] MEDS: QUEtiapine FUMARATE 300 MG TABLET PO SCH ×2 (08:52→20:02)
[2016-08-21 09:33] LABS: ALANINE AMINOTRANSFERASE 28 U/L (12-78); ALBUMIN 2.1 g/dL (3.4-5.0); ANION GAP 6 mmol/L (8-16); ASPARTATE AMINOTRANSFERASE 29 U/L (15-37); BILIRUBIN,TOTAL 0.2 mg/dL (0.1-1.0); CARBON DIOXIDE 27 mmol/L (22-29); CHLORIDE 101 mmol/L (98-107); CREATININE 0.54 mg/dL (0.60-1.30); GLOMERULAR FILTR. RATE CALC > 60 mL/min (>60); POTASSIUM 3.8 mmol/L (3.5-5.1); SODIUM SERUM 134 mmol/L (136-145); TOTAL PROTEIN, SERUM 7.7 g/dL (6.4-8.2); UREA NITROGEN, BLOOD 11 mg/dL (7-18)
[2016-08-21 12:51] LABS: RBC MORPHOLOGY COMMENT ABNORMAL RBC MORPH
[2016-08-21 12:52] VITALS: BP 118/70
[2016-08-21 16:32] VITALS: BP 101/58
[2016-08-22 05:57] VITALS: BP 98/50
[2016-08-22] MEDS: FERROUS SULFATE 325 MG EC TABLET PO SCH ×3 (06:47→17:13)
[2016-08-22] MEDS ORDERED: CEPH500B PO (07:37)
[2016-08-22] MEDS ORDERED: AZIT200S PO (07:37)
[2016-08-22] MEDS: QUEtiapine FUMARATE 300 MG TABLET PO SCH ×2 (08:12→20:39)
[2016-08-22] MEDS: CEPHALEXIN MONOHYDRATE 500 MG CAPSULE PO SCH ×2 (08:12→17:13)
[2016-08-22] MEDS: AZITHROMYCIN 250 MG TABLET PO SCH (08:12)
[2016-08-22 15:25] VITALS: BP 115/75
[2016-08-22 18:08] VITALS: BP 110/69
[2016-08-23 06:07] VITALS: BP 100/63
[2016-08-23] MEDS: FERROUS SULFATE 325 MG EC TABLET PO SCH ×3 (06:43→16:39)
[2016-08-23 08:02] VITALS: BP 98/52
[2016-08-23] MEDS: QUEtiapine FUMARATE 300 MG TABLET PO SCH ×2 (08:53→20:09)
[2016-08-23] MEDS: AZITHROMYCIN 250 MG TABLET PO SCH (08:53)
[2016-08-23] MEDS: CEPHALEXIN MONOHYDRATE 500 MG CAPSULE PO SCH ×2 (08:53→16:39)
[2016-08-23] MEDS: LORazepam 2 MG TABLET PO PRN (16:39)
[2016-08-23] MEDS: HALOPERIDOL 5 MG TABLET PO PRN (16:39)
[2016-08-23 16:48] VITALS: BP 100/62
[2016-08-23 20:13] VITALS: BP 100/60
[2016-08-24 03:13] VITALS: BP 103/63
[2016-08-24] MEDS: FERROUS SULFATE 325 MG EC TABLET PO SCH ×3 (07:04→16:59)
[2016-08-24 07:17] VITALS: BP 106/61
[2016-08-24] MEDS: CEPHALEXIN MONOHYDRATE 500 MG CAPSULE PO SCH ×2 (08:47→16:59)
[2016-08-24] MEDS: AZITHROMYCIN 250 MG TABLET PO SCH (08:47)
[2016-08-24] MEDS: QUEtiapine FUMARATE 300 MG TABLET PO SCH (08:47)
[2016-08-24 08:59] VITALS: BP 100/56
[2016-08-24 16:22] VITALS: BP 109/69
[2016-08-24] MEDS: HALOPERIDOL 5 MG TABLET PO PRN (16:59)
[2016-08-24] MEDS ORDERED: AZIT250T6 PO (17:49)
[2016-08-24] MEDS: QUEtiapine FUMARATE 200 MG TABLET PO SCH (20:46)
[2016-08-24] MEDS: LORazepam 2 MG TABLET PO PRN (20:48)
[2016-08-25 06:22] VITALS: BP 93/62
[2016-08-25] MEDS: FERROUS SULFATE 325 MG EC TABLET PO SCH ×3 (06:37→17:13)
[2016-08-25 08:27] VITALS: BP 94/52
[2016-08-25] MEDS: CEPHALEXIN MONOHYDRATE 500 MG CAPSULE PO SCH ×2 (09:20→17:14)
[2016-08-25] MEDS: QUEtiapine FUMARATE 200 MG TABLET PO SCH ×2 (09:20→20:42)
[2016-08-25] MEDS: AZITHROMYCIN 250 MG TABLET PO SCH (09:21)
[2016-08-25 16:00] VITALS: BP 108/63
[2016-08-25] MEDS: LORazepam 2 MG TABLET PO PRN (17:13)
[2016-08-26] MEDS: FERROUS SULFATE 325 MG EC TABLET PO SCH ×3 (06:19→17:16)
[2016-08-26 06:41] VITALS: BP 103/65
[2016-08-26] MEDS: CEPHALEXIN MONOHYDRATE 500 MG CAPSULE PO SCH (08:49)
[2016-08-26] MEDS: QUEtiapine FUMARATE 200 MG TABLET PO SCH ×2 (08:50→20:53)
[2016-08-26] MEDS: AZITHROMYCIN 250 MG TABLET PO SCH (08:50)
[2016-08-26] MEDS: LORazepam 2 MG TABLET PO PRN ×2 (09:23→17:16)
[2016-08-26 12:00] VITALS: BP 97/59
[2016-08-26 16:00] VITALS: BP 108/69
[2016-08-27] MEDS: FERROUS SULFATE 325 MG EC TABLET PO SCH ×3 (06:45→16:27)
[2016-08-27 07:12] VITALS: BP 110/72
[2016-08-27] MEDS: AZITHROMYCIN 250 MG TABLET PO SCH (08:18)
[2016-08-27] MEDS: QUEtiapine FUMARATE 200 MG TABLET PO SCH ×2 (08:18→21:01)
[2016-08-27 08:21] VITALS: BP 99/58
[2016-08-27] MEDS: HALOPERIDOL 5 MG TABLET PO PRN (13:55)
[2016-08-27] MEDS: LORazepam 2 MG TABLET PO PRN (13:55)
[2016-08-27 17:08] VITALS: BP 111/62
[2016-08-28 06:22] VITALS: BP 90/60
[2016-08-28] MEDS: FERROUS SULFATE 325 MG EC TABLET PO SCH ×3 (06:51→16:10)
[2016-08-28 08:26] VITALS: BP 103/66
[2016-08-28] MEDS: AZITHROMYCIN 250 MG TABLET PO SCH (08:35)
[2016-08-28] MEDS: QUEtiapine FUMARATE 200 MG TABLET PO SCH ×2 (08:35→21:10)
[2016-08-28 17:38] VITALS: BP 117/66
[2016-08-29] VITALS: BP 106/65
[2016-08-29] MEDS: FERROUS SULFATE 325 MG EC TABLET PO SCH ×2 (06:38→12:27)
[2016-08-29 08:36] VITALS: BP 100/54
[2016-08-29] MEDS: AZITHROMYCIN 250 MG TABLET PO SCH (09:57)
[2016-08-29] MEDS: QUEtiapine FUMARATE 200 MG TABLET PO SCH (09:57)
[2016-08-29 16:00] VITALS: BP 114/66
[2016-08-29] MEDS ORDERED: FERR-72 PO (17:12)
== END 2016-08-29 18:08 | disposition home or self-care (01) | DRG 750 ==
LOC: EMS 19:02 → B3A 20:00
PROVIDERS: ADMIT Psychiatry & Neurology Child & Adolescent Psychiatry; ATTEND Psychiatry & Neurology Child & Adolescent Psychiatry
DX: F20.0 Paranoid schizophrenia (principal); A41.9 Sepsis, unspecified organism; E87.1 Hypo-osmolality and hyponatremia; Z91.14 Patient's other noncompliance with medication regimen; Z72.0 Tobacco use; E87.6 Hypokalemia; D64.9 Anemia, unspecified; R00.0 Tachycardia, unspecified
CPT/HCPCS: 90471; 96372; 99285; 99406; G0480; J1200; J1630; J2060

== ENCOUNTER 2016-08-18 17:40 | Emergency (ER) | payer MEDICAID, OTHER ==
[~2016-08-18] VITALS: Ht 160 cm; Wt 54.5 kg
[2016-08-18] MEDS ORDERED: ACETAMINOPHEN 500 MG TABLET PO ONE (18:45)
[2016-08-18] MEDS ORDERED: IBUPROFEN 600 MG TABLET PO ONE (18:45)
[2016-08-18 18:52] LABS: BASOPHILS % (AUTO) 0.3 % (0.0-2.0); EOSINOPHILS % (AUTO) 1.9 % (1.0-6.0); HEMATOCRIT 28.2 % (36-46); HEMOGLOBIN 8.9 g/dL (12.0-16.0); LYMPHOCYTES # (AUTO) 1.3 K/uL (1.0-4.8); LYMPHOCYTES % (AUTO) 13.4 % (22.0-44.0); MEAN CORPUSCULAR HEMOGLOBIN 23.9 pg (26.0-34.0); MEAN CORPUSCULAR HGB CONC 31.5 G/dL (31.0-37.0); MEAN CORPUSCULAR VOLUME 76 fL (80-100); MONOCYTES # (AUTO) 0.9 K/uL (0.1-1.0); MONOCYTES % (AUTO) 9.1 % (2.0-9.0); NEUTROPHILS # (AUTO) 7.5 K/uL (1.8-7.7); NEUTROPHILS % (AUTO) 75.3 % (40.0-70.0); PLATELET COUNT (AUTO) 409 K/uL (150-450); RBC MORPHOLOGY COMMENT ABNORMAL RBC MORPH; RED BLOOD CELL COUNT(AUTO) 3.71 MIL/uL (4.00-5.20); RED CELL DISTRIBUTION WIDTH 16.8 % (11.5-14.5)
[2016-08-18 19:01] LABS: ANION GAP 8 mmol/L (8-16); CALCIUM, TOTAL 8.6 mg/dL (8.8-10.5); CARBON DIOXIDE 25 mmol/L (22-29); CHLORIDE 97 mmol/L (98-107); CREATININE 0.79 mg/dL (0.60-1.30); GLOMERULAR FILTR. RATE CALC > 60 mL/min (>60); SODIUM SERUM 130 mmol/L (136-145); UREA NITROGEN, BLOOD 13 mg/dL (7-18)
[2016-08-18 19:07] LABS: ALANINE AMINOTRANSFERASE 29 U/L (12-78); ALBUMIN 2.4 g/dL (3.4-5.0); ASPARTATE AMINOTRANSFERASE 39 U/L (15-37); BILIRUBIN,TOTAL 0.4 mg/dL (0.1-1.0); TOTAL PROTEIN, SERUM 8.9 g/dL (6.4-8.2)
[2016-08-18 19:14] LABS: APPEARANCE,URINE CLEAR (CLEAR); GLUCOSE, URINE (UA) NEGATIVE (NEGATIVE); KETONES,URINE NEGATIVE (NEGATIVE); LEUKOCYTE ESTERASE ,URINE SMALL (NEGATIVE); PH,URINE 7.5 (5.0-8.0); PROTEIN,URINE NEGATIVE (NEGATIVE)
[2016-08-18 19:17] LABS: OCCULT BLOOD,URINE TRACE (NEGATIVE); SQUAMOUS EPITHELIAL CELL,UR Few /LPF (None Seen)
[2016-08-18] MEDS ORDERED: CEPHALEXIN MONOHYDRATE 500 MG CAPSULE PO ONE (19:30)
[2016-08-18] MEDS ORDERED: SODIUM CHLORIDE 1 GM TABLET PO ONE (19:45)
[2016-08-18 20:28] VITALS: BP 127/72
== END 2016-08-18 20:44 | disposition home or self-care (01) ==
LOC: EMS 17:45
DX: J02.9 Acute pharyngitis, unspecified (principal); N39.0 Urinary tract infection, site not specified; F25.9 Schizoaffective disorder, unspecified; E87.1 Hypo-osmolality and hyponatremia; D64.9 Anemia, unspecified; F31.9 Bipolar disorder, unspecified; B19.20 Unspecified viral hepatitis C without hepatic coma; F17.210 Nicotine dependence, cigarettes, uncomplicated
CPT/HCPCS: 87086; 99284

== ENCOUNTER 2016-08-22 07:22 | Emergency (ER) | payer OTHER ==
[~2016-08-22] VITALS: Ht 160 cm; Wt 54.5 kg
[2016-08-22] MEDS ORDERED: CEPH500B PO (07:37)
[2016-08-22] MEDS ORDERED: AZIT200S PO (07:37)
[2016-08-22 07:40] VITALS: BP 90/60
[2016-08-22 08:12] LABS: HEMATOCRIT 27.5 % (36-46); HEMOGLOBIN 8.9 g/dL (12.0-16.0); MEAN CORPUSCULAR HEMOGLOBIN 24.9 pg (26.0-34.0); MEAN CORPUSCULAR HGB CONC 32.3 G/dL (31.0-37.0); MEAN CORPUSCULAR VOLUME 77 fL (80-100); PLATELET COUNT (AUTO) 348 K/uL (150-450); RED BLOOD CELL COUNT(AUTO) 3.57 MIL/uL (4.00-5.20); RED CELL DISTRIBUTION WIDTH 16.7 % (11.5-14.5); WHITE BLOOD COUNT (AUTO) 4.8 K/uL (4.5-11.0)
[2016-08-22 08:17] LABS: PROTHROMBIN TIME 10.7 SEC (9.4-11.6)
[2016-08-22 08:18] LABS: ANION GAP 6 mmol/L (8-16); CALCIUM, TOTAL 8.3 mg/dL (8.8-10.5); CARBON DIOXIDE 28 mmol/L (22-29); CHLORIDE 102 mmol/L (98-107); CREATININE 0.59 mg/dL (0.60-1.30); GLOMERULAR FILTR. RATE CALC > 60 mL/min (>60); POTASSIUM 3.8 mmol/L (3.5-5.1); SODIUM SERUM 136 mmol/L (136-145); UREA NITROGEN, BLOOD 15 mg/dL (7-18)
[2016-08-22 08:23] LABS: ALANINE AMINOTRANSFERASE 31 U/L (12-78); ALBUMIN 2.1 g/dL (3.4-5.0); ASPARTATE AMINOTRANSFERASE 33 U/L (15-37); BILIRUBIN,TOTAL 0.2 mg/dL (0.1-1.0); TOTAL PROTEIN, SERUM 8.3 g/dL (6.4-8.2)
[2016-08-22 08:34] LABS: BAND NEUTROPHILS % (MANUAL) 15 % (1-5); EOSINOPHILS % (MANUAL) 3 % (1-6); LYMPHOCYTES % (MANUAL) 17 % (22-44); RBC MORPHOLOGY COMMENT ABNORMAL RBC MORPH; TOTAL CELLS COUNTED 100
== END 2016-08-22 09:06 | disposition other institution (70) ==
LOC: EMS 07:23
DX: D64.9 Anemia, unspecified (principal); F25.9 Schizoaffective disorder, unspecified; F31.9 Bipolar disorder, unspecified; F17.210 Nicotine dependence, cigarettes, uncomplicated
CPT/HCPCS: 99285